=== PATIENT | male | born 1965 | race African-American/Black ===

== ENCOUNTER 2017-04-02 11:19 | Emergency (ER) | payer BC, OTHER ==
[~2017-04-02] VITALS: Ht 188 cm; Wt 90.0 kg
[~2017-04-02 11:19] MED LIST: IBUP800T23 PO; TRAM50 PO; Z.0.NO CURRENT MEDS
[2017-04-02 11:20] VITALS: BP 200/88; PULSE 72; RESP 20; TEMP 97.7; O2SAT 98
--- NOTE | 2017-04-02 11:23 | PD ---
Physical Exam Time Seen by Provider: 11:22 Narrative 51yo M c/o L ankle pain after injuring it his yard yesterday. Ambulatory in triage. Patient seen in triage. VS reviewed. Awaiting be placement. Data Data Last Documented VS Vital Signs Date Time Temp Pulse Resp B/P (MAP) Pulse Ox O2 Delivery O2 Flow Rate FiO2 04/02/17 11:20 97.7 72 20 200/88 (125) 98 Room Air MDM Supervised Visit with KATHERIN: Sherrell Miner Apr 02, 2017 11:23
--- NOTE | 2017-04-02 12:22 | RADRPT ---
EXAM DATE/TIME: 04/02/2017 11:39 [facility] COMPARISON: No previous studies available for comparison. INDICATIONS : Twisted ankle yesterday. MEDICAL HISTORY : None. SURGICAL HISTORY : None. ENCOUNTER: Initial ACUITY: 1 day PAIN SCORE: 9/10 LOCATION: Left Ankle FINDINGS: The ankle mortise is preserved. No joint effusion. Note is made of an acute fracture involving the ba se of the fifth metatarsal. This is nondisplaced. CONCLUSION: Acute nondisplaced fifth metatarsal fracture. José Miguel Villanueva Jr., MD on April 02, 2017 at 12:19 Board Certified Radiologist. This report was verified electronically.
--- NOTE | 2017-04-02 12:31 | PD ---
HPI Chief Complaint: Injury Time Seen by Provider: 12:30 Travel History International Travel<30 days: No Contact w/Intl Traveler<30days: No Traveled to known affect area: No History of Present Illness HPI 51-year-old male presents emergency Department with pain to the left lateral foot after running after his dog and stepping wrong yesterday. Patient denies any other injury. Pain is currently a 7 out of 10. Patient is able to ambulate with a limp. He has no known drug allergies. PFSH Past Medical History Arthritis: No Asthma: Yes Heart Rhythm Problems: No High Cholesterol: Yes Chest Pain: No Congestive Heart Failure: No COPD: No Cerebrovascular Accident: No Diabetes: No GERD: No Glaucoma: No Headaches: No Hepatitis: No Hiatal Hernia: No Hypertension: Yes Kidney Stones: No Renal Failure: No Seizures: No Sleep Apnea: No Thyroid Disease: No Ulcer: No Past Surgical History Abdominal Surgery: No AICD: No Cardiac Surgery: No Ear Surgery: No Endocrine Surgery: No Eye Surgery: No Genitourinary Surgery: No Gynecologic Surgery: No Oral Surgery: No Pacemaker: No Thoracic Surgery: No Social History Alcohol Use: Yes Tobacco Use: No Substance Use: No Allergies-Medications (Allergen,Severity, Reaction): Coded Allergies: No Known Allergies (Verified , 04/02/17) Reported Meds & Prescriptions Reported Meds & Active Scripts Active Review of Systems Except as stated in HPI: all other systems reviewed are Neg General / Constitutional: No: Fever Eyes: No: Visual changes HENT: No: Headaches Cardiovascular: No: Chest Pain or Discomfort Respiratory: No: Shortness of Breath Gastrointestinal: No: Abdominal Pain Genitourinary: No: Dysuria Musculoskeletal: Positive: Pain (see history present illness.), No: Limited ROM Skin: No Rash Neurologic: No: Weakness Psychiatric: No: Depression Endocrine: No: Polydipsia Hematologic/Lymphatic: No: Easy Bruising Physical Exam Narrative GENERAL: Patient is in no acute distress. SKIN: Warm and dry. Normal color. Normal turgor. HEAD: Atraumatic. Normocephalic. EYES: Pupils equal and round. No scleral icterus. No injection or drainage. ENT: No nasal bleeding or discharge. Mucous membranes pink and moist. NECK: Trachea midline. Supple nontender. CARDIOVASCULAR: Regular rate and rhythm. RESPIRATORY: No accessory muscle use. Clear to auscultation. Breath sounds equal bilaterally. MUSCULOSKELETAL: Extremities without clubbing, cyanosis, or edema. No obvious deformities. Patient is tenderness specifically at the base of the fifth metatarsal of the left foot. NEUROLOGICAL: Awake and alert. No obvious cranial nerve deficits. Motor grossly within normal limits. Five out of 5 muscle strength in the arms and legs. Normal speech. PSYCHIATRIC: Appropriate mood and affect; insight and judgment normal. Data Data Last Documented VS Vital Signs Date Time Temp Pulse Resp B/P (MAP) Pulse Ox O2 Delivery O2 Flow Rate FiO2 04/02/17 11:20 97.7 72 20 200/88 (125) 98 Room Air Orders Orders Ankle, Complete ([id number]) (04/02/17 11:23) [facility] Medical Decision Making Medical Screen Exam Complete: Yes Emergency Medical Condition: Yes Differential Diagnosis Left foot pain. Left foot sprain. Left foot fracture. Narrative Course X-rays ordered in triage of the left foot. X-ray shows nondisplaced distal metatarsal fracture per radiologist. Patient is placed in a postop shoe which he should wear while ambulating for the next 6-8 weeks Patient ice the area and use Tylenol as needed for pain. Work note is given with restrictions. Patient to follow local primary care physician Diagnosis Primary Impression: Fracture of fifth metatarsal bone of left foot Qualified Codes: S92.355A - Nondisplaced fracture of fifth metatarsal bone, left foot, initial encounter for closed fracture Referrals: [facility] call for appointment Primary Care Physician call for appointment Patient Instructions: Foot Fracture in Adults (ED), General Instructions Departure Forms: Work Release Enter return to work date: Apr 03, 2017 Special Instructions: Limited walking, standing, no jumping, no pulling, no climbing, until cleared by primary care physician. Patient has nondisplaced fracture in the left foot. Patient is able to drive. Additional Instructions: X-ray shows nondisplaced distal metatarsal fracture per radiologist. Patient is placed in a postop shoe which he should wear while ambulating for the next 6-8 weeks Patient ice the area and use Tylenol as needed for pain. Work note is given with restrictions. Patient to follow local primary care physician Med/Other Pt SpecificInfo: No Meds Exist/No RX given Disposition: 01 DISCHARGE HOME Condition: Stable Eddie Wilkes Apr 02, 2017 12:31
== END 2017-04-02 13:10 | disposition home or self-care (01) ==
LOC: NEPK 11:19
DX: S92.355A Nondisplaced fracture of fifth metatarsal bone, left foot, initial encounter for closed fracture (principal); X50.1XXA Overexertion from prolonged static or awkward postures, initial encounter; Y93.K9 Activity, other involving animal care; Y92.096 Garden or yard of other non-institutional residence as the place of occurrence of the external cause; J45.909 Unspecified asthma, uncomplicated; E78.00 Pure hypercholesterolemia, unspecified
CPT/HCPCS: 73610; 99283; L3260